=== PATIENT | female | born 1990 | race Hispanic/Latino ===

== ENCOUNTER 2022-02-25 19:24 | Emergency (ER) | payer OTHER ==
[~2022-02-25] VITALS: Ht 162.6 cm; Wt 96.6 kg
[2022-02-25 19:28] VITALS: BP 108/62
[2022-02-25] MEDS ORDERED: LIDOCAINE HCL 1% 10 ML VIAL ONE (19:46)
[2022-02-25] MEDS ORDERED: NEOMYCIN/POLYMYXIN/HC OTIC SUSP 10ML BOTTLE AD SCH (20:00)
[2022-02-25] MEDS ORDERED: ACETAMINOPHEN WITH CODEINE 1 TAB TAB PO ONE (20:00)
[2022-02-25] MEDS ORDERED: CEFTRIAXONE 1G VIAL IVP ONE (20:00)
[2022-02-25] MEDS ORDERED: CEFD300C3 PO (20:05)
[2022-02-25] MEDS ORDERED: ACET-2079 PO (20:05)
== END 2022-02-25 20:15 | disposition home or self-care (01) ==
LOC: EDH 19:24
DX: H66.91 Otitis media, unspecified, right ear (principal); E11.9 Type 2 diabetes mellitus without complications; E66.9 Obesity, unspecified; Z68.36 Body mass index [BMI] 36.0-36.9, adult; Z88.0 Allergy status to penicillin; Z98.890 Other specified postprocedural states
CPT/HCPCS: 99283; 96374; 82948; J0696; J3490